=== PATIENT | female | born 1975 | race Native Hawaiian/Other Pacific Islander ===

== ENCOUNTER → 2020-05-06 | Outpatient (CLI) | payer OTHER ==
[~2020-05-06] VITALS: Ht 170.2 cm; Wt 165.9 kg
[~2020-05-06] MED LIST: LIDOCAINE 1% INJ 20 ML 20 ML VIAL INJ ONE
--- NOTE | 2020-05-06 12:59 | Diagnostic Imaging Report ---
EXAMINATION: Ultrasound-guided biopsy left breast. INDICATION: Abnormal mammogram and ultrasound. The ultrasound exam performed at [facility] on 05/01/2020 noted a 1.2 x 2.1 x 0.5 cm fairly well-defined hypoechoic mass in the 1 o'clock position roughly 7 cm from the nipple. Ultrasound-guided biopsy was recommended to exclude malignancy. The area in question noted on the prior exam was visualized. Following aseptic preparation of the skin administration of local anesthesia in this region was biopsied using an 18-gauge achieve needle with ultrasound guidance. 4 passes were made. Following the procedure a clip was inserted into the biopsy site. The patient tolerated procedure well and was dismissed in good condition. IMPRESSION: There has been a successful ultrasound guided biopsy of the left breast. A final pathology report is pending. Dictated by: Dictated on workstation # [id number]
--- NOTE | 2020-05-06 16:25 | Diagnostic Imaging Report ---
EXAMINATION: Unilateral diagnostic left mammogram. INDICATION: Post left breast biopsy, clip placement. FINDINGS: The patient underwent an ultrasound-guided biopsy of a hypoechoic lesion in the 1 o'clock position of the left breast earlier today. On this exam, there is now a radiopaque clip evident in the lateral aspect of the breast on the CC view. The clip is not as well-visualized on the MLO view, however. The clip may be seen on end in the upper aspect of the left breast on the MLO view. IMPRESSION: There is a radiopaque clip evident in the region of the biopsy site. Dictated by: Dictated on workstation # [id number]
== END ==
LOC: RAD 11:00
PROVIDERS: ATTEND Nurse Practitioner Family
DX: R92.8 Other abnormal and inconclusive findings on diagnostic imaging of breast (principal)
CPT/HCPCS: 19083; 77065; A4648; G0279

== ENCOUNTER → 2021-04-15 | Outpatient (CLI) | payer SELFPAY ==
--- NOTE | 2021-04-15 16:10 | Diagnostic Imaging Report ---
PROCEDURE: US right lower extremity venous. INDICATION: Right leg pain and swelling. EXAMINATION: Grayscale and color Doppler evaluation of the deep veins of the right lower extremity were performed with waveform analysis. FINDINGS: Continuous venous flow is present within deep veins of right thigh and popliteal region. No intraluminal filling defect is identified. There is normal compressibility and response to augmentation. No abnormal perivascular fluid collection is identified. Filling defects resulting in occlusion of deep veins in the right calf are also noted with superficial thrombosis involving the mid right greater saphenous vein and proximal right lesser saphenous vein. IMPRESSION: Both deep and superficial venous thrombosis is seen in the right calf without more proximal DVT identified. Dictated by: Dictated on workstation # [id number]
== END ==
LOC: RAD FS 15:05
PROVIDERS: ATTEND Nurse Practitioner Family
DX: I82.461 Acute embolism and thrombosis of right calf muscular vein (principal); I82.811 Embolism and thrombosis of superficial veins of right lower extremity